=== PATIENT | female | born 1935 | race Caucasian/White ===

== ENCOUNTER 2016-03-07 13:18 | Emergency (ER) | payer OTHER ==
[~2016-03-07] VITALS: Ht 160 cm; Wt 58.1 kg
[~2016-03-07 13:18] MED LIST: AUGMENTIN 875-1 EACH PO; BACTRIM DS TAB1 EACH PO; LEVOTHYROXINE50 MCG PO; MOBIC15 M1 PO; SIMVASTATIN20 M2 PO
--- NOTE | 2016-03-07 13:32 | ED HAND/WRIST INJURY COMPLAINT ---
History of Present Illness General Chief Complaint: Laceration Procedure Stated Complaint: LAC TO LEFT PNIKY Source: patient Exam Limitations: no limitations Vital Signs & Intake/Output Vital Signs & Intake/Output Vital Signs Date Time Temp Pulse Resp B/P Pulse O2 O2 Flow FiO2 Ox Delivery Rate 03/07 1440 98.7 80 20 117/61 96 Room Air 03/07 1322 97.8 93 20 137/78 97 Room Air Allergies Coded Allergies: NO KNOWN ALLERGIES (01/02/16) Reconcile Medications Levothyroxine Sodium 50 MCG TABLET 1 TAB PO DAILY AC THYROID (Reported) Simvastatin (Simvastatin*) 20 MG TABLET 1 TAB PO QPM CHOLESTEROL (Reported) Triage Note: PT TO ED C/O CUT TO LEFT PINKSuresh FROM HER RING. HAPPENED MONDAY NIGHT. STATES LAST TETANUS WAS JUNE 2015. Triage Nurses Notes Reviewed? yes Occurred: just prior to arrival Duration: day(s): (2), constant, continues in ED Timing: recent history Injury Environment: home Severity: mild Pain/Injury Location: Left: 5th finger. Method of Injury: laceration No Modifying Factors: none HPI: 80-year-old female comes into emergency room with laceration to left fifth finger. Patient is wearing a ring. Patient reports that he caught on something and pulled her skin. Associated pain. Denies any other associated symptoms. Last tetanus shot was within the past year. Denies any numbness tingling. Some associated bleeding. This incident occurred on 2 days ago. (JOVITA CHAVES) Past History Travel History Traveled to [place] past 21 day No Medical History Any Pertinent Medical History? see below for history Cardiovascular: hyperlipidemia Endocrine: hypothyroidism Surgical History Surgical History: non-contributory Psychosocial History What is your primary language Swazi Tobacco Use: Never used ETOH Use: denies use Illicit Drug Use: denies illicit drug use Family History Hx Contributory? No (JOVITA CHAVES) Review of Systems Review of Systems Constitutional: Reports: no symptoms. EENTM: Reports: no symptoms. Respiratory: Reports: no symptoms. Cardiovascular: Reports: no symptoms. GI: Reports: no symptoms. Genitourinary: Reports: no symptoms. Musculoskeletal: Reports: see HPI. Skin: Reports: no symptoms. Neurological/Psychological: Reports: no symptoms. Hematologic/Endocrine: Reports: no symptoms. Immunologic/Allergic: Reports: no symptoms. All Other Systems: Reviewed and Negative (JOVITA CHAVES) Physical Exam Physical Exam General Appearance: well developed/nourished, mild distress Head: atraumatic Eyes: Bilateral: normal appearance. Ears, Nose, Throat: normal ENT inspection, hearing grossly normal Neck: normal inspection Cardiovascular/Respiratory: no respiratory distress Back: normal inspection Hand Left: 5th finger (2.5 CM LACERATION), CAP REFILL INTACT, SENSATION INTACT, FULL RANGE OF MOTION Hand Right: normal inspection Skin: intact, normal color, warm/dry Lymphatic: no anterior cervical sreedhar (JOVITA CHAVES) Progress Differential Diagnosis: compartment syndrome, dislocation, fracture, septic arthritis, sprain, tenosynovitis Plan of Care: Orders Procedure Date/time Status XRY-FINGERS, LEFT 03/07 1337 Active Diagnostic Imaging: Viewed by Me: Radiology Read. Discussed w/RAD: Radiology Read. Radiology Impression: SERVICE DATE: 03/07/16 EXAM TYPE: RAD - XRY-FINGERS , LEFT EXAMINATION: XR FINGER, LEFT CLINICAL INFORMATION: Laceration of fifth finger. Evaluate for fracture. COMPARISON: None. TECHNIQUE: Left fifth finger, 3 views FINDINGS: Bones of the hand and wrist have normal alignment. No acute fracture, subluxation, soft tissue swelling or radiopaque foreign body. The findings in the hand include mild osteoarthritis of the first carpometacarpal joint and third metacarpophalangeal joint, and there is moderate osteoarthritis of several interphalangeal joints. The distal interphalangeal joint of the index finger is fused.. IMPRESSION: 1. No acute osseous injury within the left fifth digit. 2. Osteoarthritis of the hand. DICTATED BY: MILY NORIEGA MD DATE/TIME DICTATED:03/07/161449 SQUEEGEE TENDER:SIM DATE/TIME TRANSCRIBED:1449 Comments: 03/07/2016 3:46:36 PM Patient seen by Dr. Lane. Dermabond was placed on the wound per Dr. Lane. Patient will watch for signs of infection. (JOVITA CHAVES) Departure Departure Disposition: HOME OR SELF CARE Condition: Stable Clinical Impression Primary Impression: Finger laceration Referrals: VALERIE FREEDMAN MD (PCP/Family) Referred to [facility] as new patient No Additional Instructions: Due to the fact that the laceration occurred 2 days ago I cannot close the laceration with sutures today. Keep Steri-Strips on. Keep covered with dry dressing. Watch for signs of infection such as redness swelling discharge fever chills. Please go over all results of today's visit with your primary care doctor. Contact your primary care doctor to let them know you were here in the emergency room. There may be nonspecific findings which may not be related to your visit today here in the emergency room but may require further evaluation and chronic monitoring by your primary care doctor. If you had a laceration today the chance of foreign body always remains. You should follow-up with your primary care doctor for recheck in 3-5 days for a wound check. If you had an x-ray done there is a chance that a fracture could have been missed on initial read and you should follow-up with your primary care doctor for repeat x-rays if symptoms persist. If your blood pressure was elevated here in the emergency room please have rechecked by her primary care doctor within the next 48 hours by your primary care doctor. If you were prescribed a narcotic here in the emergency room or any type of controlled substances you're not allowed to drive while taking this medication or operate any type of heavy machinery. Narcotics can make you feel lightheaded dizziness nausea and can cause constipation. You may need to cotton picking machine operator a stool softener. Thank you for choosing [facility] emergency room. Please return to the emergency room immediately if you have any other concerns worsening of symptoms. Departure Forms: Customer Survey General Discharge Information (JOVITA CHAVES) PA/RFP WRITER Co-Sign Statement Statement: ED Attending supervision documentation- [X] I saw and evaluated the patient. I have also reviewed all the pertinent lab results and diagnostic results. I agree with the findings and the plan of care as documented in the PA's/RFP WRITER's documentation. [] I have reviewed the ED Record and agree with the PA's/RFP WRITER's documentation. [] Additions or exceptions (if any) to the PAs/RFP WRITER's note and plan are summarized below: [] (LYNETTE LANE DO) Procedures Laceration/Wound Repair Laceration/Wound Repair: Wound Location: upper extremity (left pinky finger) Irrigated w/ Saline (ccs): 200 Betadine Prep? Yes Wound Repaired With: Dermabond Tetanus Status: up to date (JOVITA CHAVES)
[2016-03-07 14:40] VITALS: BP 117/61
--- NOTE | 2016-03-07 14:55 | RADIOLOGY REPORT ---
EXAMINATION: XR FINGER, LEFT CLINICAL INFORMATION: Laceration of fifth finger. Evaluate for fracture. COMPARISON: None. TECHNIQUE: Left fifth finger, 3 views FINDINGS: Bones of the hand and wrist have normal alignment. No acute fracture, subluxation, soft tissue swelling or radiopaque foreign body. The findings in the hand include mild osteoarthritis of the first carpometacarpal joint and third metacarpophalangeal joint, and there is moderate osteoarthritis of several interphalangeal joints. The distal interphalangeal joint of the index finger is fused.. IMPRESSION: 1. No acute osseous injury within the left fifth digit. 2. Osteoarthritis of the hand.
== END 2016-03-07 15:15 ==
LOC: ERH 13:18
DX: S61.217A Laceration without foreign body of left little finger without damage to nail, initial encounter (principal); W45.8XXA Other foreign body or object entering through skin, initial encounter
CPT/HCPCS: 73140-LT; J2001

== ENCOUNTER 2016-05-19 03:53 | Emergency (ER) | payer OTHER ==
[2016-05-19 04:04] VITALS: BP 145/83
--- NOTE | 2016-05-19 04:07 | ED GI/GU/ABDOMINAL COMPLAINT ---
History of Present Illness General Chief Complaint: Female Urogenital Problems Stated Complaint: BLADDER INFECTION X 4 DAYS PER PT Source: patient Exam Limitations: no limitations Vital Signs & Intake/Output Vital Signs & Intake/Output Vital Signs Date Time Temp Pulse Resp B/P Pulse O2 O2 Flow FiO2 Ox Delivery Rate 05/19 0404 97.9 78 22 145/83 97 Room Air Allergies Coded Allergies: NO KNOWN ALLERGIES (01/02/16) Reconcile Medications Levothyroxine Sodium 50 MCG TABLET 1 TAB PO DAILY AC THYROID (Reported) Phenazopyridine HCl (Pyridium) 200 MG TABLET 1 TAB PO TID PRN DYSURIA Simvastatin (Simvastatin*) 20 MG TABLET 1 TAB PO QPM CHOLESTEROL (Reported) Sulfamethoxazole/Trimethoprim (Bactrim Ds Tablet) 800 MG-160 MG TABLET 1 TAB PO BID UTI Triage Note: PER PT SUPPOSED TO START MEDS FOR BLADDER INFECTION ON MONDAY BUT [facility] HAS NOT HAD THEM. CANT GO MUCH LONGER. Triage Nurses Notes Reviewed? yes ? n Is pt currently ? No Onset: Abrupt Duration: day(s): (4) Timing: multiple episodes today Quality/Severity: moderate Location: suprapubic Activities at Onset: none No Modifying Factors: none Associated Symptoms: dysuria, urinary frequency HPI: 80 year old female presents to the ER for chief complaint of dysuria and frequency since Monday. She [facility] Monday and was called by her doctor that she had a UTI. They called in bactrim to the pharmacy but states the pharmacy has not been able to dispense her the medication yet. Patient reports frequency, dysuria, hematuria and states she can't wait any longer. No fever, chills, nausea, vomiting or diarrhea. Denies flank pain. Past History Travel History Traveled to [place] past 21 day No Medical History Any Pertinent Medical History? see below for history Neurological: NONE EENT: NONE Cardiovascular: hyperlipidemia Respiratory: NONE Gastrointestinal: NONE Hepatic: NONE Renal: NONE Musculoskeletal: NONE Psychiatric: NONE Endocrine: hypothyroidism Surgical History Surgical History: non-contributory Psychosocial History What is your primary language Hebrew Tobacco Use: Never used Family History Hx Contributory? No Review of Systems Review of Systems Constitutional: Denies: chills, fever. EENTM: Reports: no symptoms. Respiratory: Denies: cough, short of breath. Cardiovascular: Denies: chest pain. GI: Denies: abdominal pain, nausea, vomiting. Genitourinary: Reports: dysuria, frequency, pain, urgency. Musculoskeletal: Denies: back pain. Skin: Reports: no symptoms. Neurological/Psychological: Reports: no symptoms. Hematologic/Endocrine: Reports: polyuria. Denies: bruising, bleeding, polydipsia. Immunologic/Allergic: Denies: splenectomy. All Other Systems: Reviewed and Negative Physical Exam Physical Exam General Appearance: well developed/nourished, alert, awake, anxious, mild distress Head: atraumatic, normal appearance Eyes: Bilateral: normal appearance, PERRL, EOMI. Ears, Nose, Throat, Mouth: hearing grossly normal, moist mucous membrane Neck: normal inspection, supple, full range of motion Respiratory: normal breath sounds, chest non-tender, no respiratory distress Cardiovascular: regular rate/rhythm Gastrointestinal: normal bowel sounds, soft, non-tender Back: normal inspection, normal range of motion, NO CVA TENDERNESS Extremities: normal range of motion Neurologic/Psych: no motor/sensory deficits, awake, alert, oriented x 3 Skin: intact, normal color, warm/dry Core Measures ACS in differential dx? No Severe Sepsis Present: No Septic Shock Present: No Progress Differential Diagnosis: UTI/pyelo Plan of Care: Current Medications Sig/[place] Start time Last Medication Dose Stop Time Status Admin Phenazopyridine HCl 200 MG ONCE ONE 05/19 414 AC (Pyridium) 05/20 415 Trimethoprim/ 1 TAB ONCE ONE 05/19 414 AC Sulfamethoxazole 05/20 415 (Bactrim DS) Laboratory Tests 05/19/16 0401: Urine Color Cancelled, Urine Clarity Cancelled, Urine pH Cancelled, Ur Specific [place] Cancelled, Urine Protein Cancelled, Urine Ketones Cancelled, Urine Nitrite Cancelled, Urine Bilirubin Cancelled, Urine Urobilinogen Cancelled, Ur Leukocyte Esterase Cancelled, Ur Microscopic Cancelled, Urine Hemoglobin Cancelled, Urine Glucose Cancelled Microbiology 05/19 400 URINE ROUT: Urine Culture - CAN Cancelled: Cancelled via OE: Per MD Decision BACTRIM/PYRIDUM ADMINISTERED. (S[place]OL[place],LO) Initial ED EKG: none Departure Departure Time of Disposition: 412 Disposition: HOME OR SELF CARE Condition: Stable Clinical Impression Primary Impression: UTI (urinary tract infection) Referrals: VALERIE FREEDMAN MD (PCP/Family) Additional Instructions: Take the bactrim and pyridium as directed. Drink plenty of fluids. Follow up with your urogynecologist in the office. Return to the ER as needed. Departure Forms: Customer Survey General Discharge Information Prescriptions: Current Visit Scripts Sulfamethoxazole/Trimethoprim (Bactrim Ds Tablet) 1 TAB PO BID #13 TAB Phenazopyridine HCl (Pyridium) 1 TAB PO TID PRN DYSURIA #9 TAB
[2016-05-19] MEDS ORDERED: BACTRIM DS TAB1 EACH PO (04:14)
[2016-05-19] MEDS ORDERED: PYRIDIUM200 M1 PO (04:14)
== END 2016-05-19 04:22 ==
LOC: ERH 03:53
DX: N39.0 Urinary tract infection, site not specified (principal)
CPT/HCPCS: 87086

== ENCOUNTER 2016-05-21 18:38 | Emergency (ER) | payer OTHER ==
[~2016-05-21] VITALS: Ht 160 cm; Wt 55.8 kg
[~2016-05-21 18:38] MED LIST changes: +PYRIDIUM200 M1 PO
--- NOTE | 2016-05-21 19:20 | ED GENERAL ADULT ---
History of Present Illness General Chief Complaint: General Adult Stated Complaint: PT CAN'T EAT FR 4 DAYS Source: patient, family, old records Exam Limitations: no limitations Vital Signs & Intake/Output Vital Signs & Intake/Output Vital Signs Date Time Temp Pulse Resp B/P Pulse O2 O2 Flow FiO2 Ox Delivery Rate 05/21 2022 Room Air 05/21 1841 97.1 91 18 130/81 96 Room Air Allergies Coded Allergies: NO KNOWN ALLERGIES (01/02/16) Reconcile Medications Alprazolam 0.25 MG TABLET 1 TAB PO PRN ANXIETY (Reported) Aspirin (Ecotrin*) 81 MG TABLET.DR 1 TAB PO DAILY HEART/BLOOD (Reported) Diphenhydramine HCl (Benadryl) 25 MG CAPSULE 1 CAP PO QPM COUGH (Reported) Estradiol (Estrace) 0.01 % CREAM.APPL 1 GM VG 2XW HRT (Reported) Levothyroxine Sodium 50 MCG TABLET 1 TAB PO DAILY AC THYROID (Reported) Metoclopramide HCl (Reglan) 10 MG TABLET 1 TAB PO Q8 PRN nausea Ondansetron (Ondansetron Odt) 4 MG TAB.RAPDIS 1 TAB PO TID PRN N/V (Reported) Phenazopyridine HCl (Pyridium) 200 MG TABLET 1 TAB PO TID PRN DYSURIA Simvastatin (Simvastatin*) 20 MG TABLET 1 TAB PO QPM CHOLESTEROL (Reported) Sulfamethoxazole/Trimethoprim (Bactrim Ds Tablet) 800 MG-160 MG TABLET 1 TAB PO BID UTI Triage Note: PRESENTS TO ED FOR EVALUATION OF DECREASED APPETTITE AND NAUSEA FOR SEVERAL WEEKS. HAS APPROXIMATELY LOST 5 LBS. Triage Nurses Notes Reviewed? yes HPI: Patient is an 80 year old female presents complaining of nausea x 5 days, no food intake x 2 days. Lost 5 pounds due to lack of food intake. Patient began Bactrim for a UTI 3 days ago, was having dysuria that has resolved. No improvement of nausea with zofran. Patient having difficulty sleeping secondary to nausea, taking xanax without improvement. Patient has been on Bactrim and xanax previously. Denies abdominal pain, chest pain, vomiting, fevers, chills, urinary symptoms. (CARLITO GRIJALVA,CM) Past History Travel History Traveled to [place] past 21 day No Medical History Any Pertinent Medical History? see below for history Neurological: NONE EENT: NONE Cardiovascular: hyperlipidemia Respiratory: NONE Gastrointestinal: NONE Hepatic: NONE Renal: NONE Musculoskeletal: NONE Psychiatric: NONE Endocrine: hypothyroidism Surgical History Surgical History: non-contributory Psychosocial History What is your primary language Luxembourgish Tobacco Use: Never used Family History Hx Contributory? No (CM ROMAN) Review of Systems Review of Systems Constitutional: Reports: weakness. Denies: chills, fever. EENTM: Reports: no symptoms. Respiratory: Reports: cough (for 20 years, unchanged). Cardiovascular: Denies: chest pain, syncope. GI: Reports: nausea. Denies: abdominal pain, vomiting. Genitourinary: Reports: dysuria (resolved). Denies: frequency, urgency. Musculoskeletal: Reports: no symptoms. Skin: Reports: no symptoms. Neurological/Psychological: Reports: weakness. Denies: headache, numbness. Hematologic/Endocrine: Denies: bruising, bleeding. Immunologic/Allergic: Reports: no symptoms. (CM ROMAN) Physical Exam Physical Exam General Appearance: alert, awake, anxious Head: atraumatic, normal appearance Eyes: Bilateral: normal appearance, PERRL, EOMI. Ears, Nose, Throat: normal pharynx, normal ENT inspection, hearing grossly normal Neck: normal inspection, supple, full range of motion, no midline tenderness Respiratory: normal breath sounds, chest non-tender, no respiratory distress, lungs clear Cardiovascular: regular rate/rhythm Gastrointestinal: normal bowel sounds, soft, non-tender Back: normal inspection, normal range of motion Extremities: normal inspection, normal capillary refill, normal range of motion, no edema, no calf tenderness Neurologic/Psych: no motor/sensory deficits, awake, alert, oriented x 3, normal gait, normal mood/affect Skin: intact, normal color, warm/dry Lymphatic: no anterior cervical sreedhar Core Measures ACS in differential dx? No CVA/TIA Diagnosis: No Severe Sepsis Present: No Septic Shock Present: No (CM ROMAN) Progress Differential Diagnoses I considered the following diagnoses in my evaluation of the patient: medication reaction, electrolyte abnormality, dehydration, intra-abdominal infection, pneumonia, ACS, anxiety, malignancy, pancreatitis Diagnostic Imaging: Viewed by Me: Radiology Read, CT Scan. Discussed w/RAD: Radiology Read, CT Scan. Radiology Impression: PATIENT: BIBIANA CARVAJAL PRESENT AGE: 80 PATIENT ACCOUNT NO: [id number] : 35 LOCATION: [facility] ORDERING PHYSICIAN: CM GRIJALVA SERVICE DATE: 05/21/16 EXAM TYPE: RAD - XRY-CHEST XRAY, PA AND LATERAL EXAMINATION: XR CHEST CLINICAL INFORMATION: Nausea, weight loss, weakness COMPARISON: 10/23/2012 TECHNIQUE: 2 views of the chest were obtained. FINDINGS: Heart size is within normal range. The descending course of the thoracic aorta remains tortuous. Calcification is noted at the aortic arch. The hilar regions are symmetric and stable. Biapical pleural-parenchymal thickening, right greater than left, is stable compared to prior. No focal consolidation or effusion. There is mild flattening of the hemidiaphragms. Mild to moderate degenerative changes noted diffusely throughout the thoracic spine. IMPRESSION: Mild hyperinflation. No pneumonia. DICTATED BY: BENTLEY OSMAN MD DATE/TIME DICTATED:05/21/162200 OBIEE CONSULTANT:SIM DATE/TIME TRANSCRIBED:05/21/162200 CONFIDENTIAL, DO NOT COPY WITHOUT APPROPRIATE AUTHORIZATION. <Electronically signed in Other Vendor System> SIGNED BY: BENTLEY OSMAN MD 05/21/162205, PATIENT: BIBIANA CARVAJAL PRESENT AGE: 80 PATIENT ACCOUNT NO: [id number] : 35 LOCATION: [facility] ORDERING PHYSICIAN: CM GRIJALVA SERVICE DATE: EXAM TYPE: CAT - CT ABD & PELVIS W/O IV CONTRAS EXAMINATION: CT ABDOMEN AND PELVIS WITHOUT CONTRAST CLINICAL INFORMATION: Nausea, weight loss. Concern for infection. COMPARISON: None. TECHNIQUE: Contiguous axial thin section helical images of the abdomen and pelvis were performed without oral or IV contrast. The data set was reformatted in the coronal and sagittal planes and reviewed on an independent workstation. DLP: 238 mGy-cm. FINDINGS: The visualized lung bases are clear. The visualized portions of the heart are unremarkable. The liver is of normal size and attenuation without focal lesions nor intrahepatic biliary ductal dilation. A normal gallbladder is identified. There is no wall thickening or discernible pericholecystic fluid. The spleen, pancreas, adrenal glands are unremarkable. Both kidneys are of normal size and attenuation without hydronephrosis or nephrolithiasis. There is a 3.0 cm cyst within the lower pole of the left kidney. There is no abdominal free fluid. There is neither mesenteric nor retroperitoneal lymphadenopathy. There is sigmoid diverticulosis without evidence of diverticulitis. Otherwise, unremarkable unopacified loops of small and large bowel are identified. There is no pelvic free fluid. The urinary bladder is unremarkable. A pessary is in place. There is neither pelvic nor inguinal lymphadenopathy. Bone windows: Neither sclerotic nor lytic bone lesions are identified. There is multilevel disc height loss within the lumbar spine with anterior osteophyte formation. IMPRESSION: No evidence for acute abdominal or pelvic inflammatory or infectious processes. Sigmoid diverticulosis without evidence of diverticulitis. DICTATED BY: JEROME STRONG MD DATE/TIME DICTATED:05/21/162242 OBIEE CONSULTANT: SIM DATE/TIME TRANSCRIBED:05/21/162242 CONFIDENTIAL, DO NOT COPY WITHOUT APPROPRIATE AUTHORIZATION. <Electronically signed in Other Vendor System> SIGNED BY: JEROME STRONG MD 05/21/162249 Initial ED EKG: normal axis, normal intervals, normal p-waves, normal QRS complex, normal sinus rhythm, no ST T wave changes, PAC Hand-Off Endorsed To: LYNETTE LANE DO Endorsed Time: 2242 Pending: CT (CM ROMAN) Plan of Care: Orders Procedure Date/time Status CT ABD & PELVIS W/O IV CONTRAS 05/22 2143 Active MISTAKE 05/22 1951 Active URINALYSIS 05/22 1951 Complete TSH REFLEX 05/22 1951 Complete TROPONIN LEVEL 05/22 1951 Complete COMPREHENSIVE METABOLIC PANEL 05/22 1951 Complete CBC WITHOUT DIFFERENTIAL 05/22 1951 Complete EKG 05/22 1951 Active Laboratory Tests 05/21/16 2013: Anion Gap 7, Estimated GFR > 60, BUN/Creatinine Ratio 15.0, Glucose 91, Calcium 10.2, Total Bilirubin 0.5, AST 29, ALT 42, Alkaline Phosphatase 57, Troponin I < 0.01, Total Protein 7.0, Albumin 4.1, Globulin 2.9, Albumin/Globulin Ratio 1.4, TSH &T3 &Free T4 Intrp 1.640, CBC w Diff NO MAN DIFF REQ, RBC 4.62, MCV 91.4, MCH 30.0, RDW 13.9, MPV 7.9, Gran % 64.7, Lymphocytes % 23.3, Monocytes % 10.1 H, Eosinophils % 1.2, Basophils % 0.7, Absolute Granulocytes 4.7, Absolute Lymphocytes 1.7, Absolute Monocytes 0.7 H, Absolute Eosinophils 0.1, Absolute Basophils 0.1, PUBS MCHC 32.8 L, Urine Color YEL, Urine Clarity CLEAR, Urine pH 6.5, Ur Specific [place] <= 1.005, Urine Protein NEG, Urine Ketones NEG, Urine Nitrite NEG, Urine Bilirubin NEG, Urine Urobilinogen 0.2, Ur Leukocyte Esterase NEG, Ur Microscopic EXAM NOT REQUIRED, Urine Hemoglobin NEG, Urine Glucose NEG 1999: Discussed with Dr. lane. Patient reevaluated multiple times. Reports her nausea moderately improved after Reglan, offered patient crackers, patient declined. Patient evaluated by Dr. Lane: obtain chest x-ray and CT abdomen and pelvis. If negative then have patient stop taking her Bactrim and follow up with her primary care doctor. Signed out to Dr. Lane at shift change with CT pending (CM ROMAN) Departure Departure Disposition: HOME OR SELF CARE Condition: Stable Clinical Impression Primary Impression: Nausea Referrals: VALERIE TRINIDAD MD (PCP/Family) Additional Instructions: Stop taking the Bactrim. Take Reglan as directed. Follow up with Dr. Trinidad within 1 week for further evaluation. Call Monday for appointment. Departure Forms: Customer Survey General Discharge Information Prescriptions: Current Visit Scripts Metoclopramide HCl (Reglan) 1 TAB PO Q8 PRN nausea #12 TAB (CM ROMAN) PA/OUT OF SCHOOL HOURS CARE WORKER Co-Sign Statement Statement: ED Attending supervision documentation- [X] I saw and evaluated the patient. I have also reviewed all the pertinent lab results and diagnostic results. I agree with the findings and the plan of care as documented in the PA's/OUT OF SCHOOL HOURS CARE WORKER's documentation. [] I have reviewed the ED Record and agree with the PA's/OUT OF SCHOOL HOURS CARE WORKER's documentation. [] Additions or exceptions (if any) to the PAs/OUT OF SCHOOL HOURS CARE WORKER's note and plan are summarized below: [] (LYNETTE LANE DO) Critical Care Note Critical Care Note Critical Care Time: non-applicable (CM ROMAN)
[2016-05-21] MEDS ORDERED: ESTRACE42.5 GM VG (19:39)
[2016-05-21] MEDS ORDERED: ONDANSETRON ODT4 M1 PO (19:39)
[2016-05-21] MEDS ORDERED: ALPRAZOLAM0.25 M1 PO (19:40)
[2016-05-21] MEDS ORDERED: ASPIRIN EC81 M1 PO (19:41)
[2016-05-21] MEDS ORDERED: BENADRYL25 MG PO (19:41)
[2016-05-21 20:22] LABS: ABSOLUTE BASOPHIL COUNT 0.1 /CUMM (0.0-0.2); ABSOLUTE EOSINOPHIL COUNT 0.1 /CUMM (0.0-0.7); ABSOLUTE GRANULOCYTE CT 4.7 /CUMM (1.4-6.5); ABSOLUTE LYMPH COUNT 1.7 /CUMM (1.2-3.4); ABSOLUTE MONOCYTE COUNT 0.7 /CUMM (0.10-0.60); BASOPHIL % 0.7 % (0.0-2.0); EOSINOPHIL % 1.2 % (0-5); GRANULOCYTE % 64.7 % (42.2-75.2); HEMATOCRIT 42.2 % (37-47); MEAN CORPUSCULAR HGB CONC 32.8 G/DL (33.0-37.0); MEAN CORPUSCULAR VOLUME 91.4 FL (81.0-99.0); MEAN PLATELET VOLUME 7.9 FL (7.4-10.4); PLATELET COUNT 187 /CUMM (130-400); RBC DISTRIBUTION WIDTH 13.9 % (11.5-14.5); RED BLOOD CELL CT 4.62 /CUMM (4.20-5.40); WHITE BLOOD CELL COUNT 7.3 /CUMM (4.8-10.8)
--- NOTE | 2016-05-21 22:06 | RADIOLOGY REPORT ---
EXAMINATION: XR CHEST CLINICAL INFORMATION: Nausea, weight loss, weakness COMPARISON: 10/23/2012 TECHNIQUE: 2 views of the chest were obtained. FINDINGS: Heart size is within normal range. The descending course of the thoracic aorta remains tortuous. Calcification is noted at the aortic arch. The hilar regions are symmetric and stable. Biapical pleural-parenchymal thickening, right greater than left, is stable compared to prior. No focal consolidation or effusion. There is mild flattening of the hemidiaphragms. Mild to moderate degenerative changes noted diffusely throughout the thoracic spine. IMPRESSION: Mild hyperinflation. No pneumonia.
[2016-05-21] MEDS ORDERED: REGLAN10 M1 PO (22:46)
--- NOTE | 2016-05-21 22:50 | CT SCAN REPORT ---
EXAMINATION: CT ABDOMEN AND PELVIS WITHOUT CONTRAST CLINICAL INFORMATION: Nausea, weight loss. Concern for infection. COMPARISON: None. TECHNIQUE: Contiguous axial thin section helical images of the abdomen and pelvis were performed without oral or IV contrast. The data set was reformatted in the coronal and sagittal planes and reviewed on an independent workstation. DLP: 238 mGy-cm. FINDINGS: The visualized lung bases are clear. The visualized portions of the heart are unremarkable. The liver is of normal size and attenuation without focal lesions nor intrahepatic biliary ductal dilation. A normal gallbladder is identified. There is no wall thickening or discernible pericholecystic fluid. The spleen, pancreas, adrenal glands are unremarkable. Both kidneys are of normal size and attenuation without hydronephrosis or nephrolithiasis. There is a 3.0 cm cyst within the lower pole of the left kidney. There is no abdominal free fluid. There is neither mesenteric nor retroperitoneal lymphadenopathy. There is sigmoid diverticulosis without evidence of diverticulitis. Otherwise, unremarkable unopacified loops of small and large bowel are identified. There is no pelvic free fluid. The urinary bladder is unremarkable. A pessary is in place. There is neither pelvic nor inguinal lymphadenopathy. Bone windows: Neither sclerotic nor lytic bone lesions are identified. There is multilevel disc height loss within the lumbar spine with anterior osteophyte formation. IMPRESSION: No evidence for acute abdominal or pelvic inflammatory or infectious processes. Sigmoid diverticulosis without evidence of diverticulitis.
[2016-05-21 23:42] VITALS: BP 122/70
== END 2016-05-21 23:42 ==
LOC: ERH 18:38
PROVIDERS: Physician Assistant
DX: R11.0 Nausea (principal); R53.1 Weakness; E03.9 Hypothyroidism, unspecified
CPT/HCPCS: 74176; 81003; 93005; 93010; 96361; 96374; J2765